=== PATIENT | female | born 2000 | race Caucasian/White ===

== ENCOUNTER 2022-06-03 14:07 | Emergency (ER) | payer OTHER ==
[~2022-06-03] VITALS: Ht 165 cm; Wt 136.0 kg
--- NOTE | 2022-06-03 14:45 | ED Headache ---
General Chief Complaint: Head/Cervical Problems Stated Complaint: HEADACHES | LUMBAR PUNCTURE ON 05/31/22 AT Nursing Triage Note: PT STATES SHE HAD AN LP DONE ON 05/31 FOR INTRACARANIAL HYPERTENSION, CC TODAY OF HEADACHE, FEELS FAINT, NAUSEA, STIFF NECK SINCE YESTERDAY History of Present Illness Date Seen by Provider: Jun 03, 2022 Time Seen by Provider: 14:41 Initial Comments Patient is a 22-year-old female who presents to ED with diffuse head pain, dizziness, nausea since post lumbar puncture May 31 at [facility]. Patient is currently being followed by neurologist/medical radiation dosimetrist Dr. Charli Ortiz. There is concern for intracranial hypertension and is why the lumbar puncture was preformed. She states she had opening pressure of 41 with improvement after procedure. She had CSF culture obtained. She has a history of optic disc edema. Patient states headache started immediately after the lumbar puncture.Headache has been constant without increase in pain. States pain is worse when she leans forward rates 6 out of 10. When she lies down significant improvement and rates the pain 3 out of 10. She reports she has been taking Tylenol and ibuprofen without much improvement. She states she has been drinking caffeine. She contacted radiology at [facility] who recommended to go to the nearest ER to get a blood patch. She reports nausea without any vomiting since yesterday. Stiff neck today. Denies of any visual loss, unilateral muscle weakness or sensory changes, worsening head pain, chest pain, fever, chills, body aches, back pain. Allergies and Home Medications Allergies Coded Allergies: No Known Drug Allergies (Unverified , 06/03/22) Patient Home Medication List Home Medication List Reviewed: Yes Review of Systems Review of Systems Constitutional: No chills, No malaise, No weakness Eyes: Denies Blurred Vision, Denies Shadows Ears, Nose, Mouth, Throat: denies ear pain, denies epistaxis, denies mouth pain Respiratory: No cough, No orthopnea, No short of breath, No wheezing Cardiovascular: No chest pain Gastrointestinal: No abdominal pain; nausea; No vomiting Genitourinary: No decreased output, No discharge Musculoskeletal: No back pain, No joint pain Psychiatric/Neurological: Headache; Denies Numbness, Denies Paresthesia, Denies Tingling, Denies Weakness Past Gleexot-Vxeqti-Wrlfvx Hx Patient Social History Tobacco Use?: No Substance use?: No Alcohol Use?: No Immunizations Up To Date First/Initial COVID19 Vaccinat: YES Past Medical History Surgery/Hospitalization HX: HEADACHES,GALLBLADDER Physical Exam Vital Signs Vital Signs - First Documented 06/03/22 14:30 Temp 36.6 Pulse 89 Resp 18 B/P (MAP) 135/109 (118) Pulse Ox 100 O2 Delivery Room Air Capillary Refill : Less Than 3 Seconds Height, Weight, BMI Height: '" Weight: lbs. oz. kg; 49.00 BMI Method: General Appearance: WD/WN, no apparent distress HEENT: PERRL/EOMI, normal ENT inspection, TMs normal, pharynx normal Neck: non-tender, full range of motion, supple, normal inspection Cardiovascular: regular rate, rhythm, no edema, no gallop, no JVD Respiratory: chest non-tender, lungs clear, normal breath sounds, no respiratory distress, no accessory muscle use Gastrointestinal: normal bowel sounds, non tender, soft Back: normal inspection, no CVA tenderness Extremities: normal range of motion, normal inspection Crainal Nerves: normal hearing, normal speech, PERRL Coordination/Gait: normal finger to nose, normal gait Motor/Sensory: no motor deficit, no sensory deficit, no pronator drift Skin: normal color, warm/dry Progress/Results/Core Measures Results/Orders Lab Results Laboratory Tests Test 06/03/22 15:05 06/03/22 15:45 Range/Units White Blood Count 10.4 4.3-11.0 10^3/uL Red Blood Count 5.69 H 3.80-5.11 10^6/uL Hemoglobin 16.9 H 11.5-16.0 g/dL Hematocrit 49 35-52 % Mean Corpuscular Volume 87 80-99 fL Mean Corpuscular Hemoglobin 30 25-34 pg Mean Corpuscular Hemoglobin Concent 34 32-36 g/dL Red Cell Distribution Width 13.1 10.0-14.5 % Platelet Count 245 130-400 10^3/uL Mean Platelet Volume 12.0 9.0-12.2 fL Immature Granulocyte % (Auto) 0 % Neutrophils (%) (Auto) 76 H 42-75 % Lymphocytes (%) (Auto) 16 12-44 % Monocytes (%) (Auto) 7 0-12 % Eosinophils (%) (Auto) 1 0-10 % Basophils (%) (Auto) 0 0-10 % Neutrophils # (Auto) 7.9 H 1.8-7.8 10^3/uL Lymphocytes # (Auto) 1.7 1.0-4.0 10^3/uL Monocytes # (Auto) 0.7 0.0-1.0 10^3/uL Eosinophils # (Auto) 0.1 0.0-0.3 10^3/uL Basophils # (Auto) 0.0 0.0-0.1 10^3/uL Immature Granulocyte # (Auto) 0.0 0.0-0.1 10^3/uL Prothrombin Time 13.0 12.2-14.7 SEC INR Comment 0.9 0.8-1.4 Activated Partial Thromboplast Time 20 L 24-35 SEC Serum Test, Qualitative NEGATIVE NEGATIVE Sodium Level 139 135-145 MMOL/L Potassium Level 3.8 3.6-5.0 MMOL/L Chloride Level 108 H 98-107 MMOL/L Carbon Dioxide Level 19 L 21-32 MMOL/L Anion Gap 12 5-14 MMOL/L Blood Urea Nitrogen 7 7-18 MG/DL Creatinine 0.86 0.60-1.30 MG/DL Estimat Glomerular Filtration Rate 98 BUN/Creatinine Ratio 8 Glucose Level 94 70-105 MG/DL Calcium Level 8.8 8.5-10.1 MG/DL Corrected Calcium 8.9 8.5-10.1 MG/DL Total Bilirubin 0.3 0.1-1.0 MG/DL Aspartate Amino Transf (AST/SGOT) 16 5-34 U/L Alanine Aminotransferase (ALT/SGPT) 34 0-55 U/L Alkaline Phosphatase 83 40-136 U/L Total Protein 7.1 6.4-8.2 GM/DL Albumin 3.9 3.2-4.5 GM/DL My Orders Orders - MARK RIVERS Cbc With Automated Diff (06/03/22 14:49) Comprehensive Metabolic Panel (06/03/22 14:49) Partial Thromboplastin Time (06/03/22 14:49) Protime With Inr (06/03/22 14:49) Ns Iv 1000 Ml (Sodium Chloride 0.9%) (06/03/22 14:50) Butalbital/Apap/Caffeine Tab (Fioricet T (06/03/22 14:51) Ct Head Wo (06/03/22 14:52) Ondansetron Injection (Zofran Injectio (06/03/22 15:00) Hcg,Qualitative Serum (06/03/22 14:57) Ketorolac Injection (Toradol Injection) (06/03/22 16:30) Medications Given in ED Vital Signs/I&O 06/03/22 06/03/22 06/03/22 14:30 15:13 19:05 Temp 36.6 36.6 Pulse 89 87 Resp 18 16 B/P (MAP) 135/109 (118) 119/73 Pulse Ox 100 98 O2 Delivery Room Air Room Air Blood Pressure Mean: 118 Departure Communication (Admissions) Time/Spoke to Admitting Phy: 16:25 Patient head pain feels similar in nature however this appears to be more postural worse when sitting up. No focal neural deficits. Afebrile. No back pain were lumbar puncture was performed. No visual changes. Discussed patient with Dr. MOTT neurology regarding the patient's exam, findings, lab work. Patient had a lumbar puncture performed on the at [facility] by fabricio griffith. There was concern for intracranial hypertension. History of optic disc edema. She was placed on Diamox but has not started taking the medication. Discussed patient with Dr. MOTT neurology who is on-call for Dr. Baig who is patient's neurologist/medical radiation dosimetrist. Patient had CSF fluid obtained which unremarkable. CT scan of the head today was negative for any acute hemorrhaging, mass effect. Neurologically intact. No focal neural deficits. She has been attempting Tylenol ibuprofen, lying down and oral caffeine without much improvement of the head pain. Head pain is postural worse with sitting up or standing rates 7 out of 10. When lying down 3 out of 10. Patient was given a liter of fluid, Zofran, Fioricet and Toradol with some improvement. Neurologist Dr. Mott and Dr. Baig concern for spinal headache post lumbar puncture and agreed that patient needs a blood patch to help resolve her symptoms. There was no concern for complications by receiving the blood patch here at our facility. Patient was discussed with christina YI who will perform the blood patch. Communication (PCP) Patient is complaining of generalized head pain, nausea with dizziness since her lumbar puncture performed at [facility] on 31 May 2022. Head pain is worse positional when she sits up and tries to walk with improvement while laying down. History of headaches but this feels different. No current aura. head pain is diffused and feels like pressure. Currently being followed by neurology/ophthalmology Dr. Charli Jacobs at [facility]. Patient was prescribed Diamox today by the nurse. She reports history of optic disc edema. she had a opening pressure of 41 with her lumbar puncture after talking with Dr. Mott neurologist medication specialist at . It was concern for intracranial hypertension. She has not started taking the Diamox. Patient neuro exam unremarkable today. Denies of any focal neural deficits. She is afebrile. No meningeal signs. does report some neck discomfort and tightness. No lower back pain where the lumbar puncture was performed. No distal numbness and tingling. No chest pain, cough, shortness of breath. Vital signs stable. Normal white blood count, platelets and coags. CT scan of the head was unremarkable. Patient was discussed with and Dr. Mott neurology who recommended blood patch. She attempted to drink caffeine, Tylenol, ibuprofen, lying down at home without much improvement since LP. She states this headache feels different which appears to be more secondary to lumbar puncture concerning for spinal headache. She was given Zofran, a liter of fluid, Fioricet and Toradol with some improvement of the head pain. Blood patch was performed by Christina YI here at [facility] with improvement of her symptoms. She did have some mild dizziness and headache when she did stand but it did improve shortly. Discussed with radhames saleem that this may take up to 24 to 48 hours for improvement. It was recommended to follow-up with her neurology for further evaluation of the medication and her current complaints. If any worsening symptoms may return back to ED Impression Primary Impression: Spinal headache Disposition: HOME, SELF-CARE Condition: Stable Admissions Decision to Admit Reason: Admit from ER (General) (PATIENT WAS DISCHARGE AND NOT ADMITTED. ) Decision to Admit/Date: Jun 03, 2022 Time/Decision to Admit Time: 18:55 Departure-Patient Inst. Decision time for Depature: 18:55 Referrals: [facility] [place] PHYSICIAN (PCP) Primary Care Physician Patient Instructions: Spinal Headache Add. Discharge Instructions: Do not take the Diamox until discussed with your neurologist. Recommend rest for the next 24 to 48 hours. If any worsening symptoms return back to ED. All discharge instructions reviewed with patient and/or family. Voiced understanding. MARK RIVERS Jun 03, 2022 14:45
[2022-06-03] MEDS: ONDANSETRON 4 MG/2 ML (SDV) Z0FRAN IVP ONE (15:13)
[2022-06-03] MEDS: NS IV 1000 ML 1,000 ML IV STA (15:13)
[2022-06-03] MEDS: ACET/BUTAL/CAFF (FIORICET) TAB PO STA (15:13)
[2022-06-03 15:22] LABS: BASOPHILS % (AUTO) 0 % (0-10); EOSINOPHILS # (AUTO) 0.1 10^3/uL (0.0-0.3); EOSINOPHILS % (AUTO) 1 % (0-10); HEMATOCRIT 49 % (35-52); HEMOGLOBIN 16.9 g/dL (11.5-16.0); LYMPHOCYTES # (AUTO) 1.7 10^3/uL (1.0-4.0); LYMPHOCYTES % (AUTO) 16 % (12-44); MEAN CORPUSCULAR HEMOGLOBIN 30 pg (25-34); MEAN CORPUSCULAR HGB CONC 34 g/dL (32-36); MEAN CORPUSCULAR VOLUME 87 fL (80-99); MONOCYTES # (AUTO) 0.7 10^3/uL (0.0-1.0); MONOCYTES % (AUTO) 7 % (0-12); NEUTROPHILS # (AUTO) 7.9 10^3/uL (1.8-7.8); NEUTROPHILS % (AUTO) 76 % (42-75); PLATELET COUNT 245 10^3/uL (130-400); WHITE BLOOD COUNT 10.4 10^3/uL (4.3-11.0)
[2022-06-03 16:01] LABS: ALBUMIN 3.9 GM/DL (3.2-4.5); POTASSIUM 3.8 MMOL/L (3.6-5.0)
[2022-06-03 16:02] LABS: CALCIUM 8.8 MG/DL (8.5-10.1)
[2022-06-03 16:03] LABS: TOTAL PROTEIN 7.1 GM/DL (6.4-8.2)
[2022-06-03 16:05] LABS: BILIRUBIN,TOTAL 0.3 MG/DL (0.1-1.0)
[2022-06-03 16:07] LABS: CREATININE SERUM 0.86 MG/DL (0.60-1.30)
--- NOTE | 2022-06-03 16:16 | Diagnostic Imaging Report ---
INDICATION: Headache status post recent spinal tap TECHNIQUE: Routine non contrast-enhanced axial images were obtained from the skull base to the vertex. Auto Exposure Controls were utilized during the CT exam to meet ALARA standards for radiation dose reduction COMPARISON: None. FINDINGS: The ventricles and cortical sulci are normal in size and contour. There is no midline shift or mass-effect. No acute intra-axial hemorrhage is seen. There are no abnormal areas of increased or decreased density to suggest acute hemorrhage or edema. No extra-axial masses or collections are present. The bony calvarium is intact. The visualized paranasal sinuses are unremarkable. The mastoid air cells are clear. IMPRESSION: 1. No acute intracranial abnormality. No CT evidence of mass, acute infarct or intracranial hemorrhage. Dictated by: Dictated on workstation # [id number]
[2022-06-03 16:20] LABS: INR 0.9 (0.8-1.4)
[2022-06-03] MEDS: KETOROLAC 15 MG/ML VIAL IVP ONE (16:34)
[2022-06-03 19:05] VITALS: BP 119/73
--- NOTE | 2022-06-03 19:14 | Anesthesia-Procedure Note ---
Procedures/Interventions Procedure Start/Stop/Diagnosis Date of Procedure: Jun 03, 2022 Start Time: 17:00 Referring Physician: ILANA Betancourt Preprocedural Diagnosis: S/P lumbar punture at outside facilty Brief History Consulted by ER, for patient who had undergone lumbar puncture at on 05/31 for to be evaluated for intracranial hypertension and c/o headaches. Since that t john, she reports worsening headache and symptoms consistent with PDPH. She states her opening pressure was "41". ER provider has spoken with her specialists and they have cleared and recommended epidural blood patch. Discussed procedure in depth with patient, including but not limited to all risks associated with this procedure, exacerbation of her headache/other symptoms, and the possibility of little to no relief. Patient's mother at bedside, and both of them in agreement and wish to proceed with patch placement. She also reports difficulty with previous IV attempts/blood draws, that local anesthetics historically "don't numb or work well for her" and that her previous epidural for labor a couple years ago "did not work." Patient sat upright in preparation for procedure, ER-RN Joelle, at beside for sterile blood draw. Epidural space accessed easily with no issue. Patient begins to report dizziness, visibly diaphoretic, and verbalizes she's "feeling like I'm going to pass out." Bedside call light pushed, and multiple ER staff to assist so as to not contaminate field and to facilitate completion of procedure. Multiple attempts made to draw blood, unsuccessfully by more than one ER staff member. Lab called to assist. Epidural space accessed at 1725, and blood was sterilely collected from left foot @ 1750. Injected very slowly incrementally over 2 mins, and instructed patient to verbalize any discomfort throughout. Patient reports some cramping, but nothing more than existing neck pain from holding positioning for long duration. 20mL of autologous blood injected via tuohy into epidural space and then repositioned supine afterward. All things considered, patient tolerated procedure very well. Instructed to remain supine x 1 hour and that I would follow up with her barbara, as I was called to another procedure elsewhere in the hospital. Care assumed by ER staff. @1848 Upon my return, patient seems to be in good spirits and reports resolution of her symptoms. Instructed her she could resume ADL's within reason, and to continue hydrating over the next few days. Patient very appreciative. Stop Time: 17:50 Lumbar Puncture Discussed Risk,Benefits: Yes Position: Sitting Sterile Technique: Yes Blood Patch Blood Patch Patient upright on side of bed. Betadine sponges x 3 to cleanse skin. Sterile drape applied. Skin infiltration with local anesthetic PF Lidocaine 1% 3mL at L3-4 area close to previous LP site. 17G tuohy and loss of resistance technique with NS used to access epidural space. Negative aspiration of heme, or csf. Negative paresthesia. Depth at 7.75cm. Periodically while awaiting blood draw, NS 1-2mL injected to maintain patency of catheter and reassess positioning of needle. DELISA HARVEY CRNA Jun 03, 2022 19:14
== END 2022-06-03 19:05 | disposition home or self-care (01) ==
LOC: ER 14:12
DX: G97.1 Other reaction to spinal and lumbar puncture (principal); Z28.311 Partially vaccinated for COVID-19
CPT/HCPCS: 36415; 70450; 80053; 84703; 85025; 85610; 85730